=== PATIENT | male | born 1985 | race Caucasian/White ===

== ENCOUNTER → 2019-11-21 13:23 | Outpatient (CLI) | payer OTHER, MEDICAID, SELFPAY ==
[2019-11-21 16:48] LABS: Influenza A - CEPHEID Flu A NEGATIVE (NEGATIVE); Influenza B - CEPHEID Flu B NEGATIVE (NEGATIVE)
[2019-11-23 05:38] LABS: COVID19 Sendout Not Detected (Not Detected)
== END ==
PROVIDERS: Visit Provider Family Medicine
DX: R05 Cough (principal)
CPT/HCPCS: 87502; 87635

== ENCOUNTER → 2020-03-22 10:39 | Outpatient (CLI) | payer OTHER, MEDICAID, SELFPAY ==
--- NOTE | 2020-03-22 | DI.US.S_ITS ---
PROCEDURE: US THYROID INDICATIONS: NODULES TECHNIQUE: Real-time scanning was performed of the thyroid gland, with image documentation. COMPARISON: None. FINDINGS: Right: Thyroid lobe measures 6.1 x 2.4 x 2.8 cm, and is diffusely heterogeneous in echotexture. Multiple colloid cyst present. Left: Thyroid lobe measures 5.9 x 1.9 x 2.0 cm, and is diffusely heterogeneous in echotexture. Multiple colloid cyst present. Isthmus: 3.0 mm thick. Nodule number: 5.0 Location: Right mid Size: 0.8 x 0.6 x 0.8 Composition: Predominantly solid Echogenicity: Hypoechoic Shape: wider than tall. Margins: Irregular Echogenic foci: None Total points: 5 ACR TI-RADS category: Moderately suspicious IMPRESSION: Multiple bilateral colloid cyst and subcentimeter right thyroid nodule. Given the small size, no additional follow-up is warranted. ACR TI-RADS definitions and recommendations: TI-RADS 1 (benign): 0 points. FNA not needed. TI-RADS 2 (not suspicious): 2 points. FNA not needed. TI-RADS 3 (mildly suspicious): 3 points. * FNA if 2.5 cm or larger, follow up if 1.5 cm or larger (at 1, 3, and 5 years). TI-RADS 4 (moderately suspicious): 4-6 points. * FNA if 1.5 cm or larger, follow up if 1 cm or larger (at 1, 2, 3, and 5 years). TI-RADS 5 (highly suspicious): 7 points or more. * FNA if 1 cm or larger, follow up if 0.5 cm or larger (every year for 5 years). Dictated by: Jericho Long [facility] Interpreted: Wesley Macias MD on 03/22/2020 at 13:04 Approved by: Wesley Macias M.D. on 03/22/2020 at 13:51
== END ==
PROVIDERS: PCP Nurse Practitioner Family; Referring Provider Nurse Practitioner Family; Visit Provider Nurse Practitioner Family
DX: E04.1 Nontoxic single thyroid nodule (principal); E05.90 Thyrotoxicosis, unspecified without thyrotoxic crisis or storm
CPT/HCPCS: 76536

== ENCOUNTER → 2020-04-09 12:20 | Outpatient (CLI) | payer OTHER, MEDICAID, SELFPAY ==
--- NOTE | 2020-04-09 | DI.RAD.S_ITS ---
PROCEDURE: XR LUMBAR SPINE 2-3V INDICATIONS: Low back pain TECHNIQUE: 3 views of the lumbar spine were acquired. COMPARISON: None. FINDINGS: Bones: No fracture. Disc spaces grossly preserved. There is mild levocurvature at the thoracolumbar junction. Lower lumbar facet arthropathy, mild. Soft tissues: Overlying bowel gas pattern is normal. A focal 1 cm calcification projecting in the region of the left renal pelvis. A presumed left-sided pelvic phlebolith. IMPRESSION: Mild degenerative changes as above. Calcification projecting in the region of the left renal pelvis, technically indeterminate although follow-up with CT KUB could be performed as clinically necessary to exclude urolithiasis. Dictated by: Carlos Ly M.D. on 04/09/2020 at 13:25 Approved by: Carlos Ly M.D. on 04/09/2020 at 13:26
--- NOTE | 2020-04-09 | DI.RAD.S_ITS ---
PROCEDURE: XR THORACIC SPINE 3V INDICATIONS: Low back pain TECHNIQUE: 3 views of the thoracic spine were acquired. COMPARISON: None. FINDINGS: Bones: No fracture. Dextroscoliosis centered at the lower thoracic spine. Cervical spondylosis incidentally noted. Soft tissues: No paravertebral stripe thickening. IMPRESSION: Dextroscoliosis of the lower thoracic spine. No fracture Dictated by: Carlos Ly M.D. on 04/09/2020 at 13:24 Approved by: Carlos Ly M.D. on 04/09/2020 at 13:25
== END ==
PROVIDERS: PCP Nurse Practitioner Family; Referring Provider Nurse Practitioner Family; Visit Provider Nurse Practitioner Family
DX: M54.5 Low back pain (principal); M47.816 Spondylosis without myelopathy or radiculopathy, lumbar region; M47.812 Spondylosis without myelopathy or radiculopathy, cervical region; M41.84 Other forms of scoliosis, thoracic region
CPT/HCPCS: 72072; 72100

== ENCOUNTER → 2020-10-15 07:48 | Outpatient (CLI) | payer OTHER, MEDICAID, SELFPAY ==
[2020-10-15 08:29] LABS: Add Manual Diff / Slide Review NO; Basophils Absolute Auto 0 /uL (0-100); Basophils Percent Auto 0.9 % (0-2); Eosinophils Absolute Auto 200 /uL (0-450); Eosinophils Percent Auto 3.9 % (2-4); Hematocrit 45.4 % (41-53); Hemoglobin 15.8 g/dL (13.5-17.5); Lymphocytes Absolute Auto 2000 /uL (1100-4500); Lymphocytes Percent Auto 38.7 % (25-40); Mean Corpuscular HGB Conc 34.7 % (30-36); Mean Corpuscular Hemoglobin 31.5 PG (26-34); Mean Corpuscular Volume 90.9 fL (80-100); Monocytes Absolute Auto 500 /uL (0-900); Monocytes Percent Auto 10.5 % (3-14); Neutrophils Absolute Auto 2400 /uL (1500-7000); Platelet Count 210 X10^3/uL (150-400); Red Cell Distribution Width 12.5 % (11.6-14.8); White Blood Cell Count 5.1 X10^3/uL (4.5-11.0)
[2020-10-15 08:44] LABS: Alanine Aminotransferase 17 IU/L (<50); Albumin 4.7 g/dL (3.5-5.0); Albumin Globulin Ratio 1.5 (1.0-2.8); Alkaline Phosphatase 66 U/L (38-126); Aspartate Aminotransferase 24 IU/L (17-59); BUN Creatinine Ratio 18.9 (6-22); Blood Urea Nitrogen 17 mg/dL (9-20); Calcium 9.6 mg/dL (8.4-10.2); Carbon Dioxide 33 mmol/L (22-32); Chloride 100 mmol/L (98-107); Cholesterol 178 mg/dL (140-199); Estimated Glomerular Filt Rate > 60.0 mL/min (>60); Globulin 3.1 g/dL (1.7-4.1); Glucose 90 mg/dL (70-100); HDL Cholesterol 49 mg/dL (40-60); HEMOLYSIS < 15 (0-50); LDL Cholesterol Calculated 112 mg/dL (<100); Potassium 4.3 mmol/L (3.4-5.1); Sodium 139 mmol/L (137-145); Total Protein 7.8 g/dL (6.3-8.2); Triglycerides 86 mg/dL (35-150)
[2020-10-15 09:04] LABS: Free T4, Direct Thyroxine 0.81 ng/dL (0.78-2.19); T4 Total Thyroxine 6.74 ug/dL (5.5-11.0)
[2020-10-15 09:17] LABS: Thyroid Stimulating Hormone 3.29 uIU/mL (0.47-4.68)
[2020-10-15 09:50] LABS: Folate 19.7 ng/mL (2.76-20.0); Vitamin B12 643 pg/mL (239-931)
[2020-10-15 15:19] LABS: Magnesium 2.1 mg/dL (1.6-2.3)
[2020-10-16 09:15] LABS: Triiodothyronine T3 Total 130 ng/dL (71-180)
[2020-10-20 19:44] LABS: Vitamin D 25 Hydroxy (D3) 56.4 ng/mL (30.0-100.0)
== END ==
PROVIDERS: PCP Nurse Practitioner Family; Referring Provider Counselor Mental Health; Visit Provider Physician Assistant
DX: F31.31 Bipolar disorder, current episode depressed, mild (principal); F90.2 Attention-deficit hyperactivity disorder, combined type; E55.9 Vitamin D deficiency, unspecified; E05.90 Thyrotoxicosis, unspecified without thyrotoxic crisis or storm
CPT/HCPCS: 36415; 80053; 80061; 82306; 82607; 82746; 83735; 84436; 84439; 84443; 84480; 85025

== ENCOUNTER → 2021-04-04 09:17 | Outpatient (CLI) | payer OTHER, MEDICAID, SELFPAY ==
--- NOTE | 2021-04-04 | DI.RAD.S_ITS ---
PROCEDURE: XR KNEE RT 1TO2V INDICATIONS: RT KNEE PAIN TECHNIQUE: 2 views of the knee were acquired. COMPARISON: None. FINDINGS: Bones: No fractures or dislocations. No suspicious bony lesions. Soft tissues: No joint effusion. No suspicious soft tissue calcifications. IMPRESSION: No osseous abnormality identified. Dictated by: Michael Hebert M.D. on 04/04/2021 at 10:43 Approved by: Michael Hebert M.D. on 04/04/2021 at 10:43
[2021-04-04 10:23] LABS: Free T4, Direct Thyroxine 0.68 ng/dL (0.78-2.19)
[2021-04-04 10:36] LABS: Thyroid Stimulating Hormone 1.59 uIU/mL (0.47-4.68)
[2021-04-05 06:18] LABS: Triiodothyronine T3 Total 116 ng/dL (71-180)
== END ==
PROVIDERS: PCP Physician Assistant; Referring Provider Physician Assistant; Visit Provider Physician Assistant
DX: M25.561 Pain in right knee (principal); E05.90 Thyrotoxicosis, unspecified without thyrotoxic crisis or storm
CPT/HCPCS: 36415; 73560; 84439; 84443; 84480

== ENCOUNTER → 2021-05-06 10:13 | Outpatient (CLI) | payer OTHER, MEDICAID, SELFPAY ==
[2021-05-06 11:27] LABS: Add Manual Diff / Slide Review NO; Basophils Absolute Auto 0 /uL (0-100); Basophils Percent Auto 0.7 % (0-2); Eosinophils Absolute Auto 100 /uL (0-450); Eosinophils Percent Auto 2.5 % (2-4); Hematocrit 48.4 % (41-53); Hemoglobin 16.3 g/dL (13.5-17.5); Lymphocytes Absolute Auto 1800 /uL (1100-4500); Lymphocytes Percent Auto 31.9 % (25-40); Mean Corpuscular HGB Conc 33.6 % (30-36); Mean Corpuscular Hemoglobin 30.6 PG (26-34); Mean Corpuscular Volume 91.2 fL (80-100); Monocytes Absolute Auto 600 /uL (0-900); Monocytes Percent Auto 11.2 % (3-14); Neutrophils Absolute Auto 3000 /uL (1500-7000); Neutrophils Percent Auto 53.7 % (50-75); Platelet Count 232 X10^3/uL (150-400); Red Blood Cell Count 5.31 X10^6/uL (4.5-5.9); Red Cell Distribution Width 13.3 % (11.6-14.8); White Blood Cell Count 5.5 X10^3/uL (4.5-11.0)
[2021-05-06 12:54] LABS: Alanine Aminotransferase 19 IU/L (<50); Albumin 4.8 g/dL (3.5-5.0); Albumin Globulin Ratio 1.7 (1.0-2.8); Alkaline Phosphatase 77 U/L (38-126); Aspartate Aminotransferase 24 IU/L (17-59); BUN Creatinine Ratio 17.5 (6-22); Bilirubin Total 0.5 mg/dL (0.2-1.3); Blood Urea Nitrogen 14 mg/dL (9-20); Calcium 9.8 mg/dL (8.4-10.2); Carbon Dioxide 31 mmol/L (22-32); Chloride 105 mmol/L (98-107); Cholesterol 167 mg/dL (140-199); Estimated Glomerular Filt Rate > 60.0 mL/min (>60); Globulin 2.8 g/dL (1.7-4.1); Glucose 91 mg/dL (70-100); HDL Cholesterol 48 mg/dL (40-60); HEMOLYSIS < 15 (0-50); LDL Cholesterol Calculated 96 mg/dL (<100); Magnesium 2.1 mg/dL (1.6-2.3); Potassium 4.5 mmol/L (3.4-5.1); Sodium 144 mmol/L (137-145); Total Protein 7.6 g/dL (6.3-8.2); Triglycerides 117 mg/dL (35-150)
[2021-05-06 13:09] LABS: Free T4, Direct Thyroxine 0.62 ng/dL (0.78-2.19); T4 Total Thyroxine 5.77 ug/dL (5.5-11.0)
[2021-05-06 13:22] LABS: Thyroid Stimulating Hormone 2.74 uIU/mL (0.47-4.68)
[2021-05-06 13:23] LABS: Testosterone 343 ng/dL (132-813)
[2021-05-06 13:40] LABS: Vitamin B12 612 pg/mL (239-931)
[2021-05-06 14:59] LABS: Folate > 20.0 ng/mL (2.76-20.0)
[2021-05-07 06:11] LABS: Triiodothyronine T3 Total 112 ng/dL (71-180)
== END ==
PROVIDERS: PCP Physician Assistant; Referring Provider Counselor Mental Health; Visit Provider Counselor Mental Health
DX: F31.31 Bipolar disorder, current episode depressed, mild (principal); F90.2 Attention-deficit hyperactivity disorder, combined type; F19.11 Other psychoactive substance abuse, in remission; E05.90 Thyrotoxicosis, unspecified without thyrotoxic crisis or storm
CPT/HCPCS: 36415; 80053; 80061; 82306; 82607; 82746; 83735; 84403; 84436; 84439; 84443; 84480; 85025

== ENCOUNTER → 2024-06-25 11:34 | Outpatient (CLI) | payer OTHER, MEDICAID, SELFPAY ==
--- NOTE | 2024-06-25 11:41 | DI.RAD.S_ITS ---
PROCEDURE: XR KNEE LT 3V INDICATIONS: chronic bilateral knee pain TECHNIQUE: 3 views of the knee were acquired. COMPARISON: [facility], CR, XR KNEE RT 1TO2V, 04/04/2021, 9:17. FINDINGS: Bones: No fractures or dislocations. No suspicious bony lesions. Soft tissues: No joint effusion. No suspicious soft tissue calcifications. IMPRESSION: No acute bony abnormality or significant effusion. No significant degenerative change. Dictated by: Fausto Lea M.D. on 06/25/2024 at 14:07 Approved by: Fausto Lea M.D. on 06/25/2024 at 14:10
--- NOTE | 2024-06-25 11:41 | DI.RAD.S_ITS ---
PROCEDURE: XR KNEE RT 3V INDICATIONS: chronic bilateral knee pain TECHNIQUE: 3 views of the knee were acquired. COMPARISON: [facility], , XR KNEE RT 1TO2V, 04/04/2021, 9:17. FINDINGS: Bones: No fractures or dislocations. No suspicious bony lesions. Soft tissues: No joint effusion. No suspicious soft tissue calcifications. IMPRESSION: No acute bony abnormality or significant effusion. No significant degenerative change. Dictated by: Fausto Lea M.D. on 06/25/2024 at 14:16 Approved by: Fausto Lea M.D. on 06/25/2024 at 14:19
== END ==
LOC: RAD 11:40
PROVIDERS: PCP Physician Assistant
DX: M25.561 Pain in right knee (principal); M25.562 Pain in left knee; G89.29 Other chronic pain
CPT/HCPCS: 73562